=== PATIENT | female | born 1975 | race Caucasian/White ===

== ENCOUNTER → 2023-05-18 16:26 | Outpatient (CLI) | payer BC, SELFPAY ==
--- NOTE | ~2023-05-18 | MM_ITS ---
EXAMINATION: MM screening navin BI w edy HISTORY: Screening mammogram TECHNIQUE: Craniocaudal and mediolateral oblique 3-D tomosynthesis images were obtained and synthetic 2-D images were generated. CAD analysis was submitted and interpreted. COMPARISON: No prior mammogram is available for comparison at this institution. BREAST PARENCHYMAL COMPOSITION: There are scattered areas of fibroglandular density. FINDINGS: There is asymmetric density in the upper outer right breast. Diagnostic right mammogram and right breast ultrasound examination are recommended. Otherwise no suspicious mass, architectural distortion, malignant calcification, skin thickening or r etraction is evident. Probable 5 mm benign lymph node in the lateral mid posterior left breast. Occasional bilateral benign calcifications. IMPRESSION: 1. Upper outer quadrant right breast asymmetry 2. Diagnostic right mammogram and right breast ultrasound examination are recommended BI-RADS Category 0: Incomplete: Needs additional imaging evaluation. Reviewed, dictated and finalized at location [facility]. IMPRESSION: 1. Upper outer quadrant right breast asymmetry 2. Diagnostic right mammogram and right breast ultrasound examination are recom mended BI-RADS Category 0: Incomplete: Needs additional imaging evaluation.
== END ==
PROVIDERS: PCP Obstetrics & Gynecology; Visit Provider Family Medicine
DX: Z12.31 Encounter for screening mammogram for malignant neoplasm of breast (principal); R92.8 Other abnormal and inconclusive findings on diagnostic imaging of breast
CPT/HCPCS: 77063; 77067

== ENCOUNTER → 2023-08-14 09:32 | Outpatient (CLI) | payer BC, SELFPAY ==
--- NOTE | ~2023-08-14 | MMUS_ITS ---
EXAMINATION: MM diagnostic navin RT w dey, US breast RT limited HISTORY: Follow-up right breast asymmetry TECHNIQUE: Additional 3-D tomosynthesis images of the right breast were performed and synthetic 2-D i mages were generated. CAD analysis was submitted and interpreted. High resolution Limited right breas t ultrasound was performed. COMPARISON: 05/18/2023 BREAST PARENCHYMAL COMPOSITION: Breast composed of scattered areas of fibroglandular density FINDINGS: MAMMOGRAPHIC FINDINGS: The areas of asymmetry in the upper outer quadrants are less dense with spot compression views, jarvis tible with superimposed fibroglandular content. No discrete mass identified. No architectural distort ion. ULTRASOUND: Limited right breast ultrasound: At 11:00, 10 cm from the nipple, there are 2 cysts, largest measurin g 5 mm. No suspicious solid or vascular lesions are identified to suggest malignancy. IMPRESSION: 1. Probable benign focal breast asymmetry in the upper outer quadrant of the right breast without def inite sonographic correlate. 2. Recommend 6 month follow-up diagnostic right mammogram. BI-RADS category 3, probably benign findings. Reviewed, dictated and finalized at location [facility]. SE DEVELOPER IMPRESSION: 1. Probable benign focal breast asymmetry in the upper outer quadrant of the ri ght breast without definite sonographic correlate. 2. Recommend 6 month follow-up diagnostic right mammogram. BI-RADS category 3, probably benign findings.
== END ==
PROVIDERS: PCP Obstetrics & Gynecology; Visit Provider Family Medicine
DX: R92.8 Other abnormal and inconclusive findings on diagnostic imaging of breast (principal)
CPT/HCPCS: 76642; 77061; 77065; G0279

== ENCOUNTER 2024-05-01 08:57 | Outpatient (CLI) | payer BC, SELFPAY ==
--- NOTE | ~2024-05-01 | US_ITS ---
EXAMINATION: US transvaginal DATE: 05/01/2024 09:43 INDICATION: Irregular menstruation. TECHNIQUE: Multiple transvaginal sonographic images of the pelvis were obtained. COMPARISON: None. FINDINGS: The uterus is retroverted and measures 8.7 x 5.2 x 6.5 cm. There is no free fluid in the pelvis. The endometrial complex measures 7 mm in thickness. There is a 2.2 cm intramural fibroid . There is a 1.1 cm intramural fibroid. There is a 2.0 cm intramural fibroid. The right ovary measures 2.0 x 1.0 x 2. 0 cm. The left ovary measures 2.1 x 1.5 x 2.2 cm. IMPRESSION: 1. Uterine fibroids. Reviewed, dictated and finalized at location [facility]. IMPRESSION: 1. Uterine fibroids.
== END 2024-05-01 08:58 ==
LOC: MICIMG 08:59
PROVIDERS: PCP Family Medicine
DX: D25.1 Intramural leiomyoma of uterus (principal)
CPT/HCPCS: 76830

== ENCOUNTER 2025-03-19 13:39 | Outpatient (CLI) | payer BC, SELFPAY ==
--- NOTE | ~2025-03-19 | US_ITS ---
Pelvic ultrasound. Clinical History: Abnormal uterine bleeding Technique: Realtime transabdominal and transvaginal scanning of the pelvis was performed. Color flow Doppler and Doppler spectral analysis were performed. Findings: The uterus is retroverted.. The endometrial stripe has a thickness of 5 mm. Ill-defined an terior wall fibroid measures 2.0 cm in diameter. Additional posterior wall fibroid measures 2.0 cm in diameter as well. Third fibroid measures 1.5 cm in diameter. These fibroids are intramural, or possi dennis partially submucosal in location. The right ovary measures 1.3 x 1.8 x 0.9 cm. No significant right ovarian or adnexal mass is seen. The left ovary measures 1.5 x 1.1 x 1.4 cm. No significant left ovarian or adnexal mass is seen. There is no evidence of free fluid in the cul de sac. Impression: Uterine fibroids, as above. Reviewed, dictated and finalized at [facility]. Impression: Uterine fibroids, as above.
== END 2025-03-19 13:40 | disposition home or self-care (01) ==
PROVIDERS: PCP Family Medicine; Visit Provider Obstetrics & Gynecology
DX: N93.9 Abnormal uterine and vaginal bleeding, unspecified (principal); D25.9 Leiomyoma of uterus, unspecified
CPT/HCPCS: 76830; 76856